=== PATIENT | female | born 1930 | race Caucasian/White ===

== ENCOUNTER 2016-12-01 11:00 | Outpatient (CLI) | payer OTHER | END 2016-12-01 17:28 | disposition home or self-care (01) | LOC: SMA 11:00 | PROVIDERS: ATTEND Family Medicine | DX: Z12.31 Encounter for screening mammogram for malignant neoplasm of breast (principal) | CPT/HCPCS: G0202 ==

== ENCOUNTER 2017-11-27 14:45 | Outpatient (CLI) | payer OTHER | END 2017-11-27 21:15 | disposition home or self-care (01) | LOC: SMA 14:45 | PROVIDERS: ATTEND Family Medicine | DX: Z12.31 Encounter for screening mammogram for malignant neoplasm of breast (principal) | CPT/HCPCS: 77067 ==